=== PATIENT | male | born 2000 | race African-American/Black ===

== ENCOUNTER 2019-07-11 23:13 | Emergency (ER) | payer SELFPAY ==
[~2019-07-11] VITALS: Ht 170.2 cm; Wt 63.6 kg
[2019-07-12] MEDS ORDERED: IBUPROFEN 400 MG TABLET PO ONE (00:15)
[2019-07-12] MEDS ORDERED: LIDOCAINE 5% TRANSDERMAL PATCH TD ONE (00:15)
[2019-07-12 00:35] VITALS: BP 124/72
== END 2019-07-12 01:33 | disposition home or self-care (01) ==
LOC: EMS 23:13
DX: M54.2 Cervicalgia (principal)